=== PATIENT | male | born 1970 | race Caucasian/White ===

== ENCOUNTER → 2017-04-05 | Outpatient (CLI) | payer BC ==
[~2017-04-05] MED LIST: BENAZEPRIL HCL10 MG PO; BENAZEPRIL PO; BENTYL20 M1 PO; KLONOPIN PO; LOPID600 MG PO; LORTAB 5-325 M1 EACH PO; MOBIC15 MG PO; NORCO 7.5-3251 EACH PO; PERCOCET 7.5-31 EACH PO; PRILOSEC10 M1 PO; SYNTHROID PO; ZOFRAN ODT4 MG PO
--- NOTE | ~2017-04-05 | MR187 ---
[facility] A Service of [facility] RADIOLOGY TEXT RESULTS PATIENT: ARELIS MAURO LOCATION: [facility] : 74 UNIT #: [id number] AGE: [address]: Dulce Benjamin APRN SEX: M ORDER DR: [id number] [facility] [address] [place], [place] [address] [id number] O MR#: [id number] Acc #: [id number] NAME: ARELIS MAURO : 1970 SEX: M STUDY DATE/TIME: 04/05/2017 14:04 UNIT: [facility] ROOM: STUDY DESCRIPTION: MR Wrist Wo Contrast Lt Attending Physician: Dulce Benjamin A.P.R.N. Referring Physician: Dulce Benjamin A.P.R.N. Ordering Physician: Dulce Benjamin A.P.R.N. Primary Care Physician: Cary Steve M.D. MRI CENTER REPORT This report is preliminary unless electronic signature is present. EXAM MRI left wrist without contrast 04/05/2017 COMPARISON STUDIES Comparison - left wrist radiographs 06/12/2005 and 11/16/2015. HISTORY History - order states left wrist pain. History sheet states left lateral wrist pain. Fracture 2 years ago. Lifting heavy boxes at work. Patient says arthritis. Cannot straighten out the wrist. Pain on thumb side of the wrist. No surgery. History of thyroid cancer. FINDINGS Radiocarpal alignment is normal. There is no marrow lesion or fracture identified. Triangular fibrocartilage complex and distal radioulnar joint are normal. There is a linear focus coursing from superior to inferior in the central membranous portion of the scapholunate ligament. There is no scapholunate interval widening. Volar and dorsal components of the ligament appear grossly intact. Scapholunate ligament tear is a concern. Consider orthopedic or hand surgery consultation to assess whether this is a potential symptomatic lesion which could be further evaluated with MR arthrography, if clinically warranted. No arthrosis or chondromalacia is noted. Extensor tendons, flexor tendons, carpal tunnel, and median nerve are unremarkable. STS[facility] A Service of [facility] & [facility] RADIOLOGY TEXT RESULTS PATIENT: ARELIS MAURO [facility]ATION: [facility] #: [id number] : 74 UNIT #: [id number] AGE: [address]: Dulce Benjamin APRN SEX: M ORDER DR: The exam is otherwise normal. IMPRESSION 1. Vertical linear signal in the central membranous portion of the scapholunate ligament is noted. The dorsal and volar aspects of the ligament are unremarkable. Findings could be seen with a sequela of ligamentous sprain or tear (communicating or non-communicating). Consider orthopedic or hand surgery consultation regarding any potential clinical significance of this lesion. MR arthrography could be considered to assess for a communicating tear. 2. Exam is otherwise normal. Dictated by... Deepthi Horne M.D. THIS IS AN ELECTRONICALLY VERIFIED REPORT Deepthi Horne M.D. at 04/09/2017 8:39 AM [facility] TD: 04/08/2017 17:13 JOB #: [id number] MRI CENTER REPORT Page 1 of 1 COPY
== END | disposition home or self-care (01) ==
LOC: CIVR 04-01 13:00
DX: M25.532 Pain in left wrist (principal)
CPT/HCPCS: 73221